=== PATIENT | male | born 1950 | race Caucasian/White ===

== ENCOUNTER 2021-08-16 15:22 | Emergency (ER) | payer MEDICARE, BC ==
[2021-08-16] MEDS ORDERED: Ondansetron PF 4 MG/2 ML Vial ONE (15:52)
[2021-08-16] MEDS ORDERED: Ketorolac Tromethamine 30 MG/ML VIAL ONE (15:52)
[2021-08-16 16:04] LABS: #Monocytes 0.6 10x3/uL (0.0-1.1); #Neutrophils 2.9 10x3/uL (1.5-8.4); %Lymphocytes 14.9 % (18.0-47.0); %Monocytes 13.9 % (0.0-10.0); Hemoglobin 16.3 g/dL (13.5-17.5); Mean Corpuscular HGB CONC 34.5 g/dL (32.0-36.0); Mean Corpuscular Hemoglobin 29.2 pg (27.0-33.0); Mean Corpuscular Volume 84.6 fl (81.2-95.1); Mean Platelet Volume 10.9 fl (7.4-10.4); Platelet Count 167 10x3/uL (150-450); RBC Distribution Width 13.2 % (11.5-14.5); Red Blood Cell (RBC) Count 5.59 10x6/uL (4.32-5.72); White Blood Cell (WBC) Count 4.1 10x3/uL (3.5-10.5)
[2021-08-16 16:18] LABS: ALT (SGPT) 30 U/L (8-55); AST (SGOT) 35 U/L (5-34); Albumin 4.6 g/dL (3.4-4.8); Alkaline Phosphatase 57 U/L (40-110); Anion Gap 15 mmol/L (10-20); BUN (Urea Nitrogen) 21 mg/dL (8.4-25.7); Bilirubin, Total 1.3 mg/dL (0.2-1.2); Calc. Creatinine Clearance 0 mL/min (70-130); Calcium 9.2 mg/dL (7.8-10.44); Carbon Dioxide 28 mmol/L (23-31); Chloride 96 mmol/L (98-107); Globulin 3.3 g/dL (2.4-3.5); Glucose 107 mg/dL (80-115); Potassium 3.7 mmol/L (3.5-5.1); Protein, Total 7.9 g/dL (5.8-8.1); Sodium 135 mmol/L (136-145)
== END 2021-08-16 17:24 | disposition home or self-care (01) ==
LOC: CSHERS 15:22
DX: E86.0 Dehydration (principal)
CPT/HCPCS: 80053; 85025; 94760; 96374; 96375; J1885; J2405

== ENCOUNTER 2023-11-20 08:43 | Outpatient (CLI) | payer MEDICARE, BC | END 2023-11-20 08:44 | disposition home or self-care (01) | LOC: CSHMRI 08:43 | PROVIDERS: ATTEND Surgery | DX: K40.90 Unilateral inguinal hernia, without obstruction or gangrene, not specified as recurrent (principal); R10.31 Right lower quadrant pain; N40.0 Benign prostatic hyperplasia without lower urinary tract symptoms | CPT/HCPCS: 74181 ==